=== PATIENT | male | born 1985 | race Caucasian/White ===

== ENCOUNTER 2022-03-08 12:15 | Emergency (ER) | payer BC, OTHER ==
[2022-03-08 12:27] VITALS: BP 130/88; PULSE 97; RESP 18; TEMP 97.8
[2022-03-08] MEDS ORDERED: SODIUM CHLORIDE 0.9% 2,000 ML IV STA (12:42)
[2022-03-08] MEDS ORDERED: LORazepam 2 MG/ML INJ IV STA (12:42)
[2022-03-08] MEDS ORDERED: PANTOPRAZOLE 40 MG/10 ML VIAL IVP STA (12:42)
[2022-03-08] MEDS ORDERED: ONDANSETRON 4 MG/2 ML VIAL IVP STA (12:42)
--- NOTE | 2022-03-08 12:44 | ED ---
Abdominal Pain HPI - General Chief Complaint: Abdominal Pain Stated Complaint: abd pain Time Seen by Provider: 03/08/22 12:28 Source: patient, RN notes reviewed Mode of arrival: ambulatory Limitations: no limitations - History of Present Illness Initial Comments: This a 36-year-old male presents emergency Department chief complaint abdominal pain, alcohol withdrawal. Patient states that a recent CT started drinking heavily again he states he was sober prior to this for one year. Patient states she's drinking at least half a pint the morning and night states he has take multiple shots to keep from withdrawing. Patient states that he did have recent CAT scan lab work at [facility] showed evidence of gastritis, colitis. Patient states she was placed on ciprofloxacin and Flagyl and which he states he became very ill from. - Related Data Home Medications Medication Instructions Recorded Confirmed Atorvastatin [Lipitor] 10 mg PO DAILY 03/08/22 03/08/22 Dicyclomine [Bentyl] 20 mg PO QID PRN 03/08/22 03/08/22 Fenofibrate Nanocrystallized 48 mg PO DAILY 03/08/22 03/08/22 [Fenofibrate] LORazepam [Ativan] 0.5 mg PO Q8H 03/08/22 03/08/22 Metoclopramide [Reglan] 10 mg PO QID 03/08/22 03/08/22 Ondansetron [Zofran] 4 mg PO TID 03/08/22 03/08/22 metroNIDAZOLE [Flagyl] 500 mg PO BID 03/08/22 03/08/22 Allergies Allergy/AdvReac Type Severity Reaction Status Date / Time No Known Allergies Allergy Verified 03/08/22 13:34 Review of Systems ROS Statement: Those systems with pertinent positive or pertinent negative responses have been documented in the HPI. ROS Other: All systems not noted in ROS Statement are negative. Past Medical History Past Medical History: Hyperlipidemia, Seizure Disorder History of Any Multi-Drug Resistant Organisms: None Reported Past Surgical History: No Surgical Hx Reported Past Psychological History: Anxiety Smoking Status: Current every day smoker Past Alcohol Use History: Heavy Past Drug Use History: None Reported General Exam Limitations: no limitations General appearance: alert, in no apparent distress Head exam: Present: atraumatic, normocephalic, normal inspection Eye exam: Present: normal appearance, PERRL, EOMI. Absent: scleral icterus, conjunctival injection, periorbital swelling ENT exam: Present: normal exam, normal oropharynx, mucous membranes moist Neck exam: Present: normal inspection, full ROM. Absent: tenderness, meningismus, lymphadenopathy Respiratory exam: Present: normal lung sounds bilaterally. Absent: respiratory distress, wheezes, rales, rhonchi, stridor Cardiovascular Exam: Present: regular rate, normal rhythm, normal heart sounds. Absent: systolic murmur, diastolic murmur, rubs, gallop, clicks GI/Abdominal exam: Present: soft, normal bowel sounds. Absent: distended, tenderness, guarding, rebound, rigid Neurological exam: Present: alert Skin exam: Present: warm, dry, intact, normal color. Absent: rash Course Vital Signs 03/08/22 12:24 Temperature 97.8 F Pulse Rate 97 Respiratory 18 Rate Blood Pressure 130/88 O2 Sat by Pulse 96 Oximetry Medical Decision Making - Medical Decision Making 36-year-old presented from for alcohol abuse, abdominal issues. Patient did have initial labs drawn, given fluids, antiemetics patient demanded he be discharged. Patient was discharged to his mother's care who accepts responsibility of the patient. Patient is acutely intoxicated. - Lab Data Result diagrams: 03/08/22 12:56 03/08/22 12:56 Lab Results 03/08/22 03/08/22 03/08/22 Range/Units 12:56 12:56 12:56 WBC 5.6 (3.8-10.6) k/uL RBC 4.88 (4.30-5.90) m/uL Hgb 15.8 (13.0-17.5) gm/dL Hct 44.4 (39.0-53.0) % MCV 90.9 (80.0-100.0) fL MCH 32.4 (25.0-35.0) pg MCHC 35.6 (31.0-37.0) g/dL RDW 12.5 (11.5-15.5) % Plt Count 176 (150-450) k/uL MPV 8.5 Neutrophils % 51 % Lymphocytes % 34 % Monocytes % 8 % Eosinophils % 2 % Basophils % 1 % Neutrophils # 2.8 (1.3-7.7) k/uL Lymphocytes # 1.9 (1.0-4.8) k/uL Monocytes # 0.4 (0-1.0) k/uL Eosinophils # 0.1 (0-0.7) k/uL Basophils # 0.1 (0-0.2) k/uL Sodium 133 L (137-145) mmol/L Potassium 4.0 (3.5-5.1) mmol/L Chloride 103 (98-107) mmol/L Plasma Lactic Acid Federico (0.7-2.0) mmol/L Urine Color Yellow Urine Appearance Cloudy (Clear) Urine pH 7.0 (5.0-8.0) Ur Specific [place] 1.008 (1.001-1.035) Urine Protein Negative (Negative) Urine Glucose (UA) Negative (Negative) Urine Ketones Negative (Negative) Urine Blood Negative (Negative) Urine Nitrite Negative (Negative) Urine Bilirubin Negative (Negative) Urine Urobilinogen <2.0 (<2.0) mg/dL Ur Leukocyte Esterase Negative (Negative) Urine WBC 1 (0-5) /hpf Amorphous Sediment Occasional H (None) /hpf Serum Alcohol 246 H* mg/dL 03/08/22 Range/Units 12:56 WBC (3.8-10.6) k/uL RBC (4.30-5.90) m/uL Hgb (13.0-17.5) gm/dL Hct (39.0-53.0) % MCV (80.0-100.0) fL MCH (25.0-35.0) pg MCHC (31.0-37.0) g/dL RDW (11.5-15.5) % Plt Count (150-450) k/uL MPV Neutrophils % % Lymphocytes % % Monocytes % % Eosinophils % % Basophils % % Neutrophils # (1.3-7.7) k/uL Lymphocytes # (1.0-4.8) k/uL Monocytes # (0-1.0) k/uL Eosinophils # (0-0.7) k/uL Basophils # (0-0.2) k/uL Sodium (137-145) mmol/L Potassium (3.5-5.1) mmol/L Chloride (98-107) mmol/L Plasma Lactic Acid Federico 1.5 (0.7-2.0) mmol/L Urine Color Urine Appearance (Clear) Urine pH (5.0-8.0) Ur Specific [place] (1.001-1.035) Urine Protein (Negative) Urine Glucose (UA) (Negative) Urine Ketones (Negative) Urine Blood (Negative) Urine Nitrite (Negative) Urine Bilirubin (Negative) Urine Urobilinogen (<2.0) mg/dL Ur Leukocyte Esterase (Negative) Urine WBC (0-5) /hpf Amorphous Sediment (None) /hpf Serum Alcohol mg/dL Disposition Clinical Impression: Alcohol abuse, Alcohol intoxication Disposition: Left Against Medical Advice Referrals: Mark Anthony Jason MD [Primary Care Provider] - 1-2 days Time of Disposition: 14:00
[2022-03-08 13:13] LABS: Basophils # (A) 0.1 k/uL (0-0.2); Basophils % (A) 1 %; Eosinophils # (A) 0.1 k/uL (0-0.7); Eosinophils % (A) 2 %; HCT 44.4 % (39.0-53.0); HGB 15.8 gm/dL (13.0-17.5); Lymphocytes # (A) 1.9 k/uL (1.0-4.8); Lymphocytes % (A) 34 %; MCH 32.4 pg (25.0-35.0); MCHC 35.6 g/dL (31.0-37.0); MCV 90.9 fL (80.0-100.0); Mean Platelet Volume 8.5; Monocytes # (A) 0.4 k/uL (0-1.0); Monocytes % (A) 8 %; Neutrophils # (A) 2.8 k/uL (1.3-7.7); Neutrophils % (A) 51 %; Platelet Count 176 k/uL (150-450); RBC 4.88 m/uL (4.30-5.90); RDW 12.5 % (11.5-15.5); WBC 5.6 k/uL (3.8-10.6)
[2022-03-08] MEDS ORDERED: NICOTINE 21MG/24HR PATCH TRANSDERM STA (13:21)
[2022-03-08 13:22] LABS: Amorphous Sediment,Urine Occasional /hpf; Appearance,Urine Cloudy (Clear); Bilirubin,Urine Negative (Negative); Blood,Urine Negative (Negative); Color,Urine Yellow; Glucose,Urine (UA) Negative (Negative); Ketones,Urine Negative (Negative); Leukocyte Esterase,Urine Negative (Negative); Nitrite,Urine Negative (Negative); Protein,Urine Negative (Negative); Specific Gravity,Urine 1.008 (1.001-1.035); Urobilinogen,Urine <2.0 mg/dL (<2.0); WBC,Urine 1 /hpf (0-5)
[2022-03-08 14:02] LABS: Chloride 103 mmol/L (98-107); Sodium 133 mmol/L (137-145)
[2022-03-08 14:05] LABS: Alcohol 246 mg/dL
[2022-03-08 14:52] LABS: African American GFR (CKD) >90 (>60 ml/min/1.73 sqM); Anion Gap 8 mmol/L; Non-African American GFR(CKD) 81 (>60 ml/min/1.73 sqM)
[2022-03-08 15:06] LABS: Blood Urea Nitrogen 19 mg/dL (9-20); Calcium 8.3 mg/dL (8.4-10.2); Carbon Dioxide 22 mmol/L (22-30); Glucose 114 mg/dL (74-99); Magnesium 2.1 mg/dL (1.6-2.3); Total Protein 5.9 g/dL (6.3-8.2)
[2022-03-08 15:07] LABS: Albumin 3.3 g/dL (3.5-5.0); Alkaline Phosphatase 122 U/L (38-126); Amylase 57 U/L (30-110); Total Bilirubin 1.8 mg/dL (0.2-1.3)
[2022-03-08 15:20] LABS: AST 831 U/L (17-59)
[2022-03-08 15:21] LABS: ALT 1032 U/L (4-49)
== END 2022-03-08 14:06 | disposition left against medical advice (07) ==
LOC: EC 12:15
DX: R10.9 Unspecified abdominal pain (principal); F17.200 Nicotine dependence, unspecified, uncomplicated
CPT/HCPCS: 36415; 80053; 82150; 83605; 83735; 85025; 81001; 80320; 99284; 96374; 96375; S4990; J2060; J2405; C9113

== ENCOUNTER 2024-02-18 13:17 | Emergency (ER) | payer BC ==
[2024-02-18 13:52] VITALS: TEMP 97.8
--- NOTE | 2024-02-18 14:04 | ED ---
General Adult HPI - General Chief complaint: Alcohol Stated complaint: Withdrawal from alcohol Time Seen by Provider: 02/18/24 13:45 Source: patient, family, RN notes reviewed Mode of arrival: ambulatory Limitations: no limitations - History of Present Illness Initial comments: Patient is a 38-year-old male present to the emergency department for alcohol withdrawal. Patient states he last drink yesterday. Patient states he has been on a marin and has drank frequently over the past 4 days. Patient feels a little bit shaky. Patient is worried he is going through withdrawal. No abdominal pain. No nausea or vomiting. No suicidal or homicidal thoughts - Related Data Home Medications Medication Instructions Recorded Confirmed Atorvastatin [Lipitor] 10 mg PO DAILY 03/08/22 02/18/24 Ondansetron [Zofran] 4 mg PO Q8H PRN 03/08/22 02/18/24 LORazepam [Ativan] 1 mg PO BID PRN 02/18/24 02/18/24 Liver Supplement Otc 1 tab PO DAILY 02/18/24 02/18/24 Loratadine 10 mg PO DAILY 02/18/24 02/18/24 QUEtiapine [SEROquel] 25 mg PO HS 02/18/24 02/18/24 busPIRone HCL 22.5 mg PO BID 02/18/24 02/18/24 Allergies Allergy/AdvReac Type Severity Reaction Status Date / Time No Known Allergies Allergy Verified 02/18/24 18:32 Review of Systems ROS Statement: Those systems with pertinent positive or pertinent negative responses have been documented in the HPI. ROS Other: All systems not noted in ROS Statement are negative. Constitutional: Denies: fever Eyes: Denies: eye pain ENT: Denies: ear pain Respiratory: Denies: cough Cardiovascular: Denies: chest pain Endocrine: Denies: fatigue Gastrointestinal: Denies: abdominal pain, nausea, vomiting Past Medical History Past Medical History: Asthma, Hyperlipidemia, Seizure Disorder History of Any Multi-Drug Resistant Organisms: None Reported Past Surgical History: No Surgical Hx Reported Past Psychological History: Anxiety Smoking Status: Smoker, current status unknown Past Alcohol Use History: Abuse, Daily, Heavy Past Drug Use History: Methamphetamine General Exam Limitations: no limitations General appearance: alert, in no apparent distress Head exam: Present: normocephalic Eye exam: Present: normal appearance Neck exam: Present: normal inspection Respiratory exam: Present: normal lung sounds bilaterally Cardiovascular Exam: Present: tachycardia GI/Abdominal exam: Present: soft. Absent: tenderness Extremities exam: Present: normal inspection Neurological exam: Present: alert Psychiatric exam: Present: normal affect, normal mood Skin exam: Present: normal color Course Vital Signs 02/18/24 13:21 Temperature 97.8 F Pulse Rate 115 H Respiratory 16 Rate Blood Pressure 144/93 O2 Sat by Pulse 96 Oximetry Medical Decision Making - Medical Decision Making Was pt. sent in by a medical professional or institution (, JOSE, RESPIRATORY TECHNICIAN, urgent care, hospital, or fci...) When possible be specific @ -No Did you speak to anyone other than the patient for history (EMS, parent, family, police, friend...)? What history was obtained from this source @ -No Did you review nursing and triage notes (agree or disagree)? Why? @ -I reviewed and agree with nursing and triage notes Were old charts reviewed (outside hosp., previous admission, EMS record, old EKG, old radiological studies, urgent care reports/EKG's, fci records)? Report findings @ -No old charts were reviewed Differential Diagnosis (chest pain, altered mental status, abdominal pain women, abdominal pain men, vaginal bleeding, weakness, fever, dyspnea, syncope, headac he, dizziness, GI bleed, back pain, seizure, CVA, palpatations, mental health, musculoskeletal)? @ -Differential Mental Health Depression, anxiety, bipolar, psychosis, schizophrenia, borderline personality, situational depression, adjustment disorder, behavioral disorder, brain tumor, malingering, substance abuse, encephalopathy, medication reaction, dementia, hypothyroidism, degenerative neurologic disorder, lupus.... This is not meant to be all-inclusive list EKG interpreted by me (3pts min.). @ -As above X-rays interpreted by me (1pt min.). @ -None done CT interpreted by me (1pt min.). @ -None done U/S interpreted by me (1pt. min.). @ -None done What testing was considered but not performed or refused? (CT, X-rays, U/S, labs)? Why? @ -None What meds were considered but not given or refused? Why? @ -None Did you discuss the management of the patient with other professionals (pr ofessionals i.e. Dr., PA, RESPIRATORY TECHNICIAN, lab, RT, psych nurse, aids social worker, needle molder, teacher, tourist information officer, family preservation caseworker)? Give summary @ -Case discussed with mental health nurse who did evaluate patient and plans are for discharge. Patient denies any suicidal thoughts. Was smoking cessation discussed for >3mins.? @ -No Was critical care preformed (if so, how long)? @ -No Were there social determinants of health that impacted care today? How? (Homelessness, low income, unemployed, alcoholism, drug addiction, transportation, low edu. Level, literacy, decrease access to med. care, residential, rehab)? @ -No Was there de-escalation of care discussed even if they declined (Discuss DNR or withdrawal of care, Hospice)? DNR status @ -No What co-morbidities impacted this encounter? (DM, HTN, Smoking, COPD, CAD, Cancer, CVA, ARF, Chemo, Hep., AIDS, mental health diagnosis, sleep apnea, morbid obesity)? @ -None Was patient admitted / discharged? Hospital course, mention meds given and route, prescriptions, significant lab abnormalities, going to OR and other pertinent info. @ -Patient presents with alcohol problems. Family had concerns and patient was seen by mental health services with plans for discharge. Patient will be discharged and recommended follow-up with substance abuse and primary care physician Undiagnosed new problem with uncertain prognosis? @ -No Drug Therapy requiring intensive monitoring for toxicity (Heparin, Nitro, Insulin, Cardizem)? @ -No Were any procedures done? @ -No Diagnosis/symptom? @ -Alcohol abuse Acute, or Chronic, or Acute on Chronic? @ -Acute on chronic Uncomplicated (without systemic symptoms) or Complicated (systemic symptoms)? @ -Default Side effects of treatment? @ -No Exacerbation, Progression, or Severe Exacerbation? @ -No Poses a threat to life or bodily function? How? (Chest pain, USA, VT, pneumonia, PE, COPD, DKA, ARF, appy, cholecystitis, CVA, Diverticulitis, Homicidal, Suicidal, threat to staff... and all critical care pts) @ -No - Lab Data Result diagrams: 02/18/24 14:43 02/18/24 14:43 Lab Results 02/18/24 02/18/24 Range/Units 14:43 14:43 WBC 8.4 (3.8-10.6) k/uL RBC 5.51 (4.30-5.90) m/uL Hgb 18.4 H (13.0-17.5) gm/dL Hct 50.5 (39.0-53.0) % MCV 91.6 (80.0-100.0) fL MCH 33.4 (25.0-35.0) pg MCHC 36.5 (31.0-37.0) g/dL RDW 13.1 (11.5-15.5) % Plt Count 311 (150-450) k/uL MPV 7.8 Neutrophils % 57 % Lymphocytes % 34 % Monocytes % 6 % Eosinophils % 1 % Basophils % 1 % Neutrophils # 4.8 (1.3-7.7) k/uL Lymphocytes # 2.8 (1.0-4.8) k/uL Monocytes # 0.5 (0-1.0) k/uL Eosinophils # 0.0 (0-0.7) k/uL Basophils # 0.1 (0-0.2) k/uL Hyperchromasia Slight Sodium 143 (137-145) mmol/L Potassium 3.9 (3.5-5.1) mmol/L Chloride 106 (98-107) mmol/L Carbon Dioxide 22 (22-30) mmol/L Anion Gap 15 mmol/L BUN 11 (9-20) mg/dL Creatinine 0.83 (0.66-1.25) mg/dL Est GFR (CKD-EPI)AfAm >90 (>60 ml/min/1.73 sqM) Est GFR (CKD-EPI)NonAf >90 (>60 ml/min/1.73 sqM) Glucose 129 H (74-99) mg/dL Calcium 9.3 (8.4-10.2) mg/dL Magnesium 1.8 (1.6-2.3) mg/dL Total Bilirubin 1.3 (0.2-1.3) mg/dL AST 37 (17-59) U/L ALT 46 (4-49) U/L Alkaline Phosphatase 53 (38-126) U/L Total Protein 7.6 (6.3-8.2) g/dL Albumin 4.8 (3.5-5.0) g/dL Disposition Clinical Impression: Alcohol intoxication, Alcohol abuse Disposition: HOME SELF-CARE Condition: Stable Instructions (If sedation given, give patient instructions): Alcohol Withdrawal (ED), Alcohol Intoxication (ED), Help Prevent Suicide (ED), Depression (ED) Additional Instructions: Discontinue alcohol use. Please follow-up with your primary care physician in the next day or 2 for recheck. Please do follow-up with rehab again. Consider [facility] or similar. Return for confusion, uncontrolled vomiting, worsening symptoms or other concerns. Is patient prescribed a controlled substance at d/c from ED?: No Referrals: Julia Rich, JEREMIAS [REFERRING] - 1-2 days Forms: AA Meetings CORNELIUS Jo Meetings [address] - [facility], In Substance Abuse Facilities Time of Disposition: 19:07
[2024-02-18 15:11] LABS: ALT 46 U/L (4-49); AST 37 U/L (17-59); African American GFR (CKD) >90 (>60 ml/min/1.73 sqM); Albumin 4.8 g/dL (3.5-5.0); Alkaline Phosphatase 53 U/L (38-126); Anion Gap 15 mmol/L; Blood Urea Nitrogen 11 mg/dL (9-20); Calcium 9.3 mg/dL (8.4-10.2); Carbon Dioxide 22 mmol/L (22-30); Chloride 106 mmol/L (98-107); Glucose 129 mg/dL (74-99); Magnesium 1.8 mg/dL (1.6-2.3); Non-African American GFR(CKD) >90 (>60 ml/min/1.73 sqM); Potassium 3.9 mmol/L (3.5-5.1); Sodium 143 mmol/L (137-145); Total Bilirubin 1.3 mg/dL (0.2-1.3); Total Protein 7.6 g/dL (6.3-8.2)
[2024-02-18] MEDS: NICOTINE 21MG/24HR PATCH TRANSDERM STA (15:15)
[2024-02-18] MEDS: LORazepam 2 MG/ML INJ IV STA ×2 (15:15→18:25)
[2024-02-18] MEDS: SODIUM CHLORIDE 0.9% 1,000 ML IV STA (15:15)
[2024-02-18] MEDS: THIAMINE 100 MG/ML 2 ML VIAL IM STA (15:16)
[2024-02-18 15:30] LABS: Basophils # (A) 0.1 k/uL (0-0.2); Basophils % (A) 1 %; Eosinophils % (A) 1 %; HCT 50.5 % (39.0-53.0); HGB 18.4 gm/dL (13.0-17.5); Hyperchromasia Slight; Lymphocytes # (A) 2.8 k/uL (1.0-4.8); Lymphocytes % (A) 34 %; MCH 33.4 pg (25.0-35.0); MCHC 36.5 g/dL (31.0-37.0); MCV 91.6 fL (80.0-100.0); Mean Platelet Volume 7.8; Monocytes # (A) 0.5 k/uL (0-1.0); Monocytes % (A) 6 %; Neutrophils # (A) 4.8 k/uL (1.3-7.7); Neutrophils % (A) 57 %; Platelet Count 311 k/uL (150-450); RBC 5.51 m/uL (4.30-5.90); RDW 13.1 % (11.5-15.5); WBC 8.4 k/uL (3.8-10.6)
[2024-02-18] MEDS: LOPERAMIDE 2 MG CAP PO STA (18:24)
[2024-02-18] MEDS: LORazepam 1 MG TAB PO STA (19:24)
[2024-02-18] MEDS: ONDANSETRON 4 MG ODT STARTER PACK 2 TAB BTL PO STA (19:24)
[2024-02-18 20:05] VITALS: BP 138/89; PULSE 105; RESP 18
== END 2024-02-18 19:32 | disposition home or self-care (01) ==
LOC: EC 13:17
DX: F10.129 Alcohol abuse with intoxication, unspecified (principal); R00.0 Tachycardia, unspecified; F17.200 Nicotine dependence, unspecified, uncomplicated
CPT/HCPCS: 82075; 36415; 80053; 83735; 85025; 99285; 96374; 96376; 96361 ×4; 96372; S4990; J2060; J3411; S0119

== ENCOUNTER 2024-05-16 09:57 | Inpatient (IN) | payer BC ==
[2024-05-16] MEDS ORDERED: LORazepam 2 MG/ML INJ IV PRN ×2 (10:14)
--- NOTE | 2024-05-16 10:18 | ED ---
Alcohol HPI - General Chief Complaint: Alcohol Stated Complaint: ETOH Time Seen by Provider: 05/16/24 10:16 Source: patient, family, RN notes reviewed Mode of arrival: ambulatory Limitations: no limitations - History of Present Illness Initial Comments: 38-year-old male presented to the ER with a chief complaint of alcohol withdrawal. Patient sent from [facility] for evaluation of alcohol intoxication. Patient reports he is currently trying to enter alcohol rehabilitation at [facility] but his alcohol level was too high for his admittance at this time. Patient states he typically drinks 1 pint per day. His last drink was last night around 11 PM. He denies any history of seizures or delirium tremors with withdrawal. He denies any current headache, cough, congestion, chest pain, shortness of breath, abdominal pain or peripheral edema. - Related Data Home Medications Medication Instructions Recorded Confirmed Atorvastatin [Lipitor] 10 mg PO DAILY 03/08/22 05/16/24 QUEtiapine [SEROquel] 25 mg PO HS 02/18/24 05/16/24 busPIRone HCL 22.5 mg PO BID 02/18/24 05/16/24 Ondansetron Odt [Zofran Odt] 4 mg PO Q12HR PRN 05/16/24 05/16/24 Allergies Allergy/AdvReac Type Severity Reaction Status Date / Time No Known Allergies Allergy Verified 05/16/24 11:38 Review of Systems ROS Statement: Those systems with pertinent positive or pertinent negative responses have been documented in the HPI. ROS Other: All systems not noted in ROS Statement are negative. Past Medical History Past Medical History: Asthma, Hyperlipidemia, Seizure Disorder History of Any Multi-Drug Resistant Organisms: None Reported Past Surgical History: No Surgical Hx Reported Past Psychological History: Anxiety Smoking Status: Vaper Past Alcohol Use History: Abuse, Daily, Heavy Past Drug Use History: Methamphetamine General Exam Limitations: no limitations General appearance: alert, in no apparent distress, appears intoxicated Respiratory exam: Present: normal lung sounds bilaterally. Absent: respiratory distress, wheezes, rales, rhonchi, stridor Cardiovascular Exam: Present: normal rhythm, tachycardia, normal heart sounds GI/Abdominal exam: Present: soft, normal bowel sounds. Absent: distended, tenderness, guarding, rebound, rigid Extremities exam: Present: normal inspection, full ROM, normal capillary refill. Absent: tenderness, pedal edema, joint swelling, calf tenderness Skin exam: Present: warm, dry, intact, normal color. Absent: rash Course Vital Signs 05/16/24 05/16/24 09:59 11:25 Temperature 97.7 F Pulse Rate 125 H 109 H Respiratory 18 16 Rate Blood Pressure 118/82 118/62 O2 Sat by Pulse 96 96 Oximetry - Reevaluation(s) Reevaluation #1: 05/16/24 12:07 Case discussed with [facility], Dr. Ngo, accepted medial admission. Medical Decision Making - Medical Decision Making Was pt. sent in by a medical professional or institution (, JOSE, WHEEL AND CASTER REPAIRER, urgent care, hospital, or usp...) When possible be specific @ -Patient sent here from [facility] for evaluation of alcohol intoxication. Did you speak to anyone other than the patient for history (EMS, parent, family, police, friend...)? What history was obtained from this source @ -Mother aiding in HPI and PMHX as patient is intoxicated. Did you review nursing and triage notes (agree or disagree)? Why? @ -I reviewed and agree with nursing and triage notes Were old charts reviewed (outside hosp., previous admission, EMS record, old EKG, old radiological studies, urgent care reports/EKG's, usp records)? Report findings @ -No old charts were reviewed Differential Diagnosis (chest pain, altered mental status, abdominal pain women, abdominal pain men, vaginal bleeding, weakness, fever, dyspnea, syncope, headache, dizziness, GI bleed, back pain, seizure, CVA, palpatations, mental health, musculoskeletal)? @ -Alcohol intoxication, alcohol withdrawal, electrolyte abnormality This list is not meant to be all-inclusive EKG interpreted by me (3pts min.). @ -None X-rays interpreted by me (1pt min.). @ -None done CT interpreted by me (1pt min.). @ -None done U/S interpreted by me (1pt. min.). @ -None done What testing was considered but not performed or refused? (CT, X-rays, U/S, labs)? Why? @ -None What meds were considered but not given or refused? Why? @ -None Did you discuss the management of the patient with other professionals (professionals i.e. , JOSE, WHEEL AND CASTER REPAIRER, lab, RT, psych nurse, psychiatric social worker, computer scientist, teacher, sales and service officer, corrections caseworker)? Give summary @ -Yes, case discussed with [facility], Dr. Ngo, who accepts medical admission. Was smoking cessation discussed for >3mins.? @ -No Was critical care preformed (if so, how long)? @ -No Were there social determinants of health that impacted care today? How? (Homelessness, low income, unemployed, alcoholism, drug addiction, transportation, low edu. Level, literacy, decrease access to med. care, usp, rehab)? @ -Patient has alcoholism and is currently trying to enter [facility] for rehabilitation. Patient sent here by [facility] for alcohol intoxication. Was there de-escalation of care discussed even if they declined (Discuss DNR or withdrawal of care, Hospice)? DNR status @ -No What co-morbidities impacted this encounter? (DM, HTN, Smoking, COPD, CAD, Cancer, CVA, ARF, Chemo, Hep., AIDS, mental health diagnosis, sleep apnea, morbid obesity)? @ -Alcoholism, anxiety Was patient admitted / discharged? Hospital course, mention meds given and route, prescriptions, significant lab abnormalities, going to OR and other pertinent info. @ -Admitted. 38-year-old male presented to ER with a chief complaint of alcohol intoxication. Patient presented from [facility] as he is currently trying to enter rehabilitation for alcoholism. He reports he normally drinks 1 pint per day last drink around 11 PM last night. History and physical exam completed. Vitals stable. Patient in no signs of acute distress but is intoxicated on exam. Exam unimpressive. Laboratory studies obtained remarkable for serum alcohol at 340 with associated transaminitis (total bilirubin 2.4, AST 236, ALT 181). Patient started on CIWA and ativan protocol. Patient received 1 L IV fluids in the ER. Admission considered for alcohol intoxication. Case discussed with [facility], Dr. Ngo, who accepts medical admission. Patient agreeable for admission. Case discussed with ED attending, Dr. Anderson. Undiagnosed new problem with uncertain prognosis? @ -No Drug Therapy requiring intensive monitoring for toxicity (Heparin, Nitro, Insulin, Cardizem)? @ -No Were any procedures done? @ -No Diagnosis/symptom? @ -Alcohol intoxication/transaminitis Acute, or Chronic, or Acute on Chronic? @ -Acute Uncomplicated (without systemic symptoms) or Complicated (systemic symptoms)? @ -Complicated Side effects of treatment? @ -No Exacerbation, Progression, or Severe Exacerbation? @ -No Poses a threat to life or bodily function? How? (Chest pain, USA, OR, pneumonia, PE, COPD, DKA, ARF, appy, cholecystitis, CVA, Diverticulitis, Homicidal, Suicidal, threat to staff... and all critical care pts) @ -Possibly alcohol withdrawal can lead to seizures. - Lab Data Result diagrams: 05/16/24 10:39 05/16/24 10:39 Lab Results 05/16/24 05/16/24 Range/Units 10:39 10:39 WBC 5.5 (3.8-10.6) k/uL RBC 5.82 (4.30-5.90) m/uL Hgb 17.8 H (13.0-17.5) gm/dL Hct 52.4 (39.0-53.0) % MCV 90.1 (80.0-100.0) fL MCH 30.5 (25.0-35.0) pg MCHC 33.9 (31.0-37.0) g/dL RDW 12.9 (11.5-15.5) % Plt Count 228 (150-450) k/uL MPV 7.7 Neutrophils % 56 % Lymphocytes % 31 % Monocytes % 8 % Eosinophils % 1 % Basophils % 1 % Neutrophils # 3.0 (1.3-7.7) k/uL Lymphocytes # 1.7 (1.0-4.8) k/uL Monocytes # 0.4 (0-1.0) k/uL Eosinophils # 0.1 (0-0.7) k/uL Basophils # 0.1 (0-0.2) k/uL Sodium 143 (137-145) mmol/L Potassium 3.8 (3.5-5.1) mmol/L Chloride 109 H (98-107) mmol/L Carbon Dioxide 22 (22-30) mmol/L Anion Gap 12 mmol/L BUN 14 (9-20) mg/dL Creatinine 0.89 (0.66-1.25) mg/dL Est GFR (CKD-EPI)AfAm >90 (>60 ml/min/1.73 sqM) Est GFR (CKD-EPI)NonAf >90 (>60 ml/min/1.73 sqM) Glucose 107 H (74-99) mg/dL Calcium 8.5 (8.4-10.2) mg/dL Magnesium 2.0 (1.6-2.3) mg/dL Total Bilirubin 2.4 H (0.2-1.3) mg/dL AST 236 H (17-59) U/L ALT 181 H (4-49) U/L Alkaline Phosphatase 50 (38-126) U/L Total Protein 6.7 (6.3-8.2) g/dL Albumin 4.3 (3.5-5.0) g/dL Serum Alcohol 340 H* mg/dL Disposition Clinical Impression: Alcohol intoxication, Transaminitis Disposition: ADMITTED IP TO THIS HOSP Condition: Stable Referrals: Mark Anthony Jason MD [Primary Care Provider] - 1-2 days Time of Disposition: 12:07
[2024-05-16] MEDS: SODIUM CHLORIDE 0.9% 1,000 ML IV STA (10:33)
[2024-05-16] MEDS: THIAMINE 100 MG/ML 2 ML VIAL IM STA (10:34)
[2024-05-16 10:58] LABS: ALT 181 U/L (4-49); AST 236 U/L (17-59); African American GFR (CKD) >90 (>60 ml/min/1.73 sqM); Albumin 4.3 g/dL (3.5-5.0); Alkaline Phosphatase 50 U/L (38-126); Anion Gap 12 mmol/L; Blood Urea Nitrogen 14 mg/dL (9-20); Calcium 8.5 mg/dL (8.4-10.2); Carbon Dioxide 22 mmol/L (22-30); Chloride 109 mmol/L (98-107); Glucose 107 mg/dL (74-99); Non-African American GFR(CKD) >90 (>60 ml/min/1.73 sqM); Potassium 3.8 mmol/L (3.5-5.1); Sodium 143 mmol/L (137-145); Total Bilirubin 2.4 mg/dL (0.2-1.3); Total Protein 6.7 g/dL (6.3-8.2)
[2024-05-16 11:16] LABS: Alcohol 340 mg/dL; Basophils # (A) 0.1 k/uL (0-0.2); Basophils % (A) 1 %; Eosinophils # (A) 0.1 k/uL (0-0.7); Eosinophils % (A) 1 %; HCT 52.4 % (39.0-53.0); HGB 17.8 gm/dL (13.0-17.5); Lymphocytes # (A) 1.7 k/uL (1.0-4.8); Lymphocytes % (A) 31 %; MCH 30.5 pg (25.0-35.0); MCHC 33.9 g/dL (31.0-37.0); MCV 90.1 fL (80.0-100.0); Mean Platelet Volume 7.7; Monocytes # (A) 0.4 k/uL (0-1.0); Monocytes % (A) 8 %; Neutrophils % (A) 56 %; Platelet Count 228 k/uL (150-450); RBC 5.82 m/uL (4.30-5.90); RDW 12.9 % (11.5-15.5); WBC 5.5 k/uL (3.8-10.6)
[2024-05-16] MEDS ORDERED: NALOXONE 0.4 MG/ML 1 ML VIAL IV PRN (12:06)
[2024-05-16] MEDS ORDERED: IBUPROFEN 400 MG TAB PO PRN (12:06)
[2024-05-16] MEDS: SODIUM CHLORIDE 0.9% 1,000 ML IV SCH (12:13)
[2024-05-16] MEDS: HEPARIN SODIUM,PORCINE 5,000 UNIT/ML 1 ML VIAL SQ SCH (15:05)
[2024-05-16] MEDS: ONDANSETRON 4 MG/2 ML VIAL IVP PRN ×2 (16:11→21:29)
[2024-05-16] MEDS: LORazepam 2 MG/ML INJ IV PRN (16:11)
[2024-05-16] MEDS: busPIRone HCl 5 MG TAB PO SCH (21:30)
[2024-05-16] MEDS: QUEtiapine 25 MG TAB PO SCH (21:32)
--- NOTE | 2024-05-17 01:50 | P.HPIM ---
History of Present Illness H&P Date: 05/16/24 Chief Complaint: Acute alcohol intoxication Patient is a 38-year-old male with a past medical history of severe alcohol abuse, drinks 1 pint a day, asthma, hyperlipidemia, prior history of seizures and Alvarez, anxiety and history of methamphetamine use. Patient presents to ER due to complaints of alcohol withdrawals. Patient was sent from [place] due to acute alcohol intoxication. Patient is currently trying to enter alcohol rehabilitation at [facility] but his level was too high for him to admit to the facility. Last drink was about 11 PM. Currently patient is intoxicated and confused. Denies any chest pain or shortness of breath. Denies any cough or sputum production. No hematemesis or melena. No complaints of abdominal pain. Laboratory data showed WBC 5.4 hemoglobin 17.8 and platelets 228 sodium 143 potassium 3.8 chloride 109 bicarb is 22 BUN 14 and creatinine 0.89 blood sugar 107, total bili 2.4 AST 258 ALT 181 and alk phos 50 and albumin 4.3 Serum alcohol level is 340 Review of Systems ROS unobtainable: due to mental status Past Medical History Past Medical History: Asthma, Hyperlipidemia, Seizure Disorder History of Any Multi-Drug Resistant Organisms: None Reported Past Surgical History: No Surgical Hx Reported Past Psychological History: Anxiety Smoking Status: Vaper Past Alcohol Use History: Abuse, Daily, Heavy Past Drug Use History: Methamphetamine Medications and Allergies Home Medications Medication Instructions Recorded Confirmed Type Atorvastatin [Lipitor] 10 mg PO DAILY 03/08/22 05/16/24 History QUEtiapine [SEROquel] 25 mg PO HS 02/18/24 05/16/24 History busPIRone HCL 22.5 mg PO BID 02/18/24 05/16/24 History Ondansetron Odt [Zofran Odt] 4 mg PO Q12HR PRN 05/16/24 05/16/24 History Allergies Allergy/AdvReac Type Severity Reaction Status Date / Time No Known Allergies Allergy Verified 05/16/24 11:38 Physical Exam Vitals: Vital Signs Temp Pulse Resp BP Pulse Ox 05/16/24 11:25 109 H 16 118/62 96 05/16/24 09:59 97.7 F 125 H 18 118/82 96 Intake and Output 05/15/24 05/16/24 05/16/24 22:59 06:59 14:59 Other: Weight 108.862 kg PHYSICAL EXAMINATION: Patient is lying in the bed mild distress, awake alert but disoriented and confused and intoxicated.. HEENT: Normocephalic. Neck is supple. Pupils reactive. Nostrils clear. Oral cavity is moist. Neck reveals no JVD, carotid bruits, or thyromegaly. CHEST EXAMINATION: Trachea is central. Symmetrical expansion. Lung fontaine clear to auscultation and percussion. CARDIAC: Normal S1, S2 with no gallops. No murmurs ABDOMEN: Soft. Bowel sounds normal. No organomegaly. No abdominal bruits. Extremities: reveal no edema. No clubbing or cyanosis Neurologically awake, alert, disoriented, confused.. No gross focal deficits noted Skin: No rash or skin lesions. Psychiatric: Coperative. Could not be assessed completely Musculoskeletal: No joint swelling or deformity. Normal range of motion. Results CBC & Chem 7: 05/17/24 05:14 05/17/24 05:14 Labs: Abnormal Lab Results - Last 24 Hours (Table) 05/16/24 05/16/24 Range/Units 10:39 10:39 Hgb 17.8 H (13.0-17.5) gm/dL Chloride 109 H (98-107) mmol/L Glucose 107 H (74-99) mg/dL Total Bilirubin 2.4 H (0.2-1.3) mg/dL AST 236 H (17-59) U/L ALT 181 H (4-49) U/L Serum Alcohol 340 H* mg/dL Thrombosis Risk Factor Assmnt - DVT/VTE Prophylaxis DVT/VTE Prophylaxis: Pharmacologic Prophylaxis ordered Assessment and Plan Assessment: Acute alcohol intoxication with level 340 on admission. Patient does drink about a pint daily. Severe alcohol abuse Alcoholic hepatitis with elevated liver enzymes. AST 236 and ALT 181 on admission Prior history of seizure disorder Hyperlipidemia Asthma Anxiety History of vaping and methamphetamine use GI and DVT prophylaxis with heparin subcu and Pepcid Plan: Patient will be continued on IV hydration with normal saline. Continue to monitor for alcohol withdrawal symptoms. Patient will be started on thiamine and multivitamins. Started back on home medications and follow-up closely. Follow-up repeat CBC and CMP. Time with Patient: Greater than 30
[2024-05-17] MEDS: ATORVASTATIN 10 MG TAB PO SCH (08:23)
[2024-05-17] MEDS: THIAMINE 100 MG TAB PO SCH (08:23)
[2024-05-17 08:57] LABS: Basophils # (A) 0.08 X 10*3/uL (0.00-0.10); Eosinophils # (A) 0.12 X 10*3/uL (0.04-0.35); Eosinophils % (A) 1.6 %; HCT 45.5 % (39.6-50.0); HGB 16.6 g/dL (13.0-17.0); Lymphocytes # (A) 0.89 X 10*3/uL (0.90-5.00); Lymphocytes % (A) 11.6 %; MCH 32.1 pg (27.0-32.0); MCHC 36.5 g/dL (32.0-37.0); Mean Platelet Volume 11.6 FL (9.5-12.2); Monocytes # (A) 0.33 X 10*3/uL (0.20-1.00); Monocytes % (A) 4.3 %; NRBC Per 100 WBC 0 X 10*3/uL (0.00-0.01); Neutrophils % (A) 81.2 %; Platelet Count 181 X 10*3/uL (140-440); RBC 5.17 X 10*6/uL (4.40-5.60); RDW 12.4 % (11.5-14.5); WBC 7.64 X 10*3/uL (4.50-10.00)
[2024-05-17 09:17] LABS: ALT 569 U/L (10-49); AST 884 U/L (14-35); Albumin 4.2 g/dL (3.8-4.9); Albumin/Globulin Ratio 2.47 Ratio (1.60-3.17); Alkaline Phosphatase 62 U/L (41-126); BUN/Creat Ratio 12.22 Ratio (12.00-20.00); Calcium 8.2 mg/dL (8.7-10.3); Carbon Dioxide 21.8 mmol/L (21.6-31.8); Chloride 98 mmol/L (96-109); Globulin 1.7 g/dL (1.6-3.3); Glucose 101 mg/dL (70-110); Potassium 4.1 mmol/L (3.5-5.5); Sodium 136 mmol/L (135-145); Total Bilirubin 3.8 mg/dL (0.3-1.2); Total Protein 5.9 g/dL (6.2-8.2)
[2024-05-17 15:09] VITALS: BMI 33.5
--- NOTE | 2024-05-17 15:13 | P.CONS ---
History of Present Illness - Reason for Consult Consult date: 05/17/24 Elevated LFTs Requesting physician: Jamee Villanueva - Chief Complaint Alcohol intoxication - History of Present Illness This is a pleasant 38-year-old male who was sent over from [facility] for alcohol intoxication. Patient had elevated alcohol level and needed to come to the hospital for clearance before being admitted to [facility] for alcohol abuse. Patient was noted to have elevated LFTs on admission with increased today. [facility] was consulted for elevated liver enzymes. Patient states he has been an alcoholic for many years he states most of his life. He states that he drinks a half a pint to 1 pint daily. He denies any previous known history of liver disease. He lives in [place], he does not follow with any previous anchorman. He denies any abdominal pain, nausea or vomiting. Serum alcohol level on admission was 340. Today's labs WBC 7.6 hemoglobin 16.6 platelet count 181,000 sodium 136 potassium 4.1 BUN 11 creatini ne 0.9 total bilirubin 3.8 AST 884 ALT 569 alkaline phosphatase 62 Review of Systems REVIEW OF SYSTEMS: CARDIOPULMONARY: No chest pain or shortness of breath. Gastrointestinal: No abdominal pain. No nausea or vomiting. No hematemesis, coffee-ground emesis. No rectal bleeding, or melena. GENITOURINARY: No dysuria or hematuria. MUSCULOSKELETAL: Reports normal range of motion., Joint pain. SKIN: No rashes. No jaundice. ENDOCRINE: No chills, fevers. No excessive weight gain or loss. No polydipsia or polyuria. PSYCHIATRIC: Alcohol abuse, dependence, intoxication. NEUROLOGY: No change in mental status. Denies dizziness, headache. ENT: Vision unremarkable. CONSTITUTIONAL: No recent weight loss. No fever, chills, night sweats. Past Medical History Past Medical History: Asthma, Hyperlipidemia, Seizure Disorder History of Any Multi-Drug Resistant Organisms: None Reported Past Surgical History: No Surgical Hx Reported Past Psychological History: Anxiety Smoking Status: Vaper Past Alcohol Use History: Abuse, Daily, Heavy Past Drug Use History: Methamphetamine Medications and Allergies Home Medications Medication Instructions Recorded Confirmed Type Atorvastatin [Lipitor] 10 mg PO DAILY 03/08/22 05/16/24 History QUEtiapine [SEROquel] 25 mg PO HS 02/18/24 05/16/24 History busPIRone HCL 22.5 mg PO BID 02/18/24 05/16/24 History Ondansetron Odt [Zofran Odt] 4 mg PO Q12HR PRN 05/16/24 05/16/24 History Allergies Allergy/AdvReac Type Severity Reaction Status Date / Time No Known Allergies Allergy Verified 05/16/24 11:38 Physical Exam Vitals: Vital Signs Temp Pulse Pulse Resp BP BP Pulse Ox 05/17/24 07:00 98 F 105 H 19 121/74 94 L 05/17/24 05:07 107 H 129/88 94 L 05/17/24 02:00 97.5 F L 87 16 115/73 95 05/16/24 18:15 97.9 F 84 20 103/72 05/16/24 17:23 98.4 F 85 18 109/64 95 05/16/24 11:25 109 H 16 118/62 96 Intake and Output 05/16/24 05/17/24 05/17/24 22:59 06:59 14:59 Other: # Voids 2 3 Weight 108.862 kg General appearance: The patient is alert, oriented, appears in no acute distress. HET: Head is normocephalic and atraumatic. Conjunctiva pink. Sclera anicteric. Neck: Supple without lymphadenopathy. Trachea midline. Heart: Regular. Lungs: Equal expansion, normal respiratory effort. Abdomen: Soft, mild right upper abdominal tenderness, nondistended. Skin: No rashes. No jaundice. Extremities: Normal skin color and turgor. No pedal edema. Neurological: No focal deficits. Alert and oriented x3. Results CBC & Chem 7: 05/17/24 05:14 05/17/24 05:14 Labs: Abnormal Lab Results - Last 24 Hours (Table) 05/16/24 05/16/24 05/17/24 Range/Units 10:39 10:39 05:14 Hgb 17.8 H (13.0-17.5) gm/dL MCH 32.1 H (27.0-32.0) pg Lymphocytes # 0.89 L (0.90-5.00) X 10*3/uL Chloride 109 H (98-107) mmol/L Anion Gap (4.00-12.00) mmol/L Glucose 107 H (74-99) mg/dL Calcium (8.7-10.3) mg/dL Total Bilirubin 2.4 H (0.2-1.3) mg/dL AST 236 H (17-59) U/L ALT 181 H (4-49) U/L Total Protein (6.2-8.2) g/dL Serum Alcohol 340 H* mg/dL 05/17/24 Range/Units 05:14 Hgb (13.0-17.5) gm/dL MCH (27.0-32.0) pg Lymphocytes # (0.90-5.00) X 10*3/uL Chloride (98-107) mmol/L Anion Gap 16.20 H (4.00-12.00) mmol/L Glucose (74-99) mg/dL Calcium 8.2 L (8.7-10.3) mg/dL Total Bilirubin 3.8 H (0.2-1.3) mg/dL AST 884 H (17-59) U/L ALT 569 H (4-49) U/L Total Protein 5.9 L (6.2-8.2) g/dL Serum Alcohol mg/dL Assessment and Plan (1) Alcoholic hepatitis Narrative/Plan: 8-year-old male presenting to the hospital with alcohol intoxication with a bl ood alcohol level of 340 with a longstanding history of alcohol abuse over many years. Patient noted to have elevated LFTs on admission with increased elevation today. No prior history of known liver disease denies any history of IV drug use. Elevated LFTs likely secondary to acute alcohol hepatitis. Hepatitis panel ordered and currently pending. Discussed with patient importance of alcohol abstinence, need for alcohol abstinence as patient likely has underlying liver disease possible cirrhosis from alcohol abuse. Will order liver ultrasound. Continue to monitor LFTs. Continue with rehab with [facility] on discharge. Current Visit: No Status: Acute Code(s): K70.10 - ALCOHOLIC HEPATITIS WITHOUT ASCITES SNOMED Code(s): 039528227 (2) Alcohol intoxication Current Visit: Yes Status: Acute Code(s): F10.929 - ALCOHOL USE, UNSPECIFIED WITH INTOXICATION, UNSPECIFIED SNOMED Code(s): 79311839 (3) Transaminitis Current Visit: Yes Status: Acute Code(s): R74.01 - ELEVATION OF LEVELS OF LIVER TRANSAMINASE LEVELS SNOMED Code(s): 602029406 Plan: 1. Continue symptomatic and supportive care 2. CMP, INR 3. Liver ultrasound ordered 4. Diet as tolerated 5. Recommend alcohol abstinence. Discussed with patient and his mother at the bedside importance of alcohol abstinence and progression of liver disease and possible cirrhosis of the liver. Patient verbalized understanding. Thank you for this consultation, we will continue to follow. Dr. Ezequiel Brandt I agree with the dictator's note, documented as a scribe by Sarah Tesfaye.
[2024-05-17 16:00] LABS: Hepatitis A Antibody IgM Nonreactive (Nonreactive); Hepatitis B Core IgM Nonreactive (Nonreactive); Hepatitis B Surface Antigen Nonreactive (Nonreactive); Hepatitis C IgG Antibody Nonreactive (Nonreactive)
[2024-05-17] MEDS: NICOTINE 21MG/24HR PATCH TRANSDERM SCH (16:14)
[2024-05-17] MEDS ORDERED: LORazepam 1 MG TAB PO PRN (16:41)
--- NOTE | 2024-05-17 22:09 | US ---
EXAMINATION TYPE: US liver DATE OF EXAM: 05/17/2024 COMPARISON: NONE CLINICAL INDICATION: Male, 38 years old with history of elevated liver enzymes; Elevated liver enzyme s. TECHNIQUE: Multiple sonographic images of the right upper quadrant are obtained. FINDINGS: EXAM MEASUREMENTS: Liver Length: 20.5 cm Gallbladder Wall: 0.29 cm CBD: 0.5 cm Right Kidney: 11.4 x 5.5 x 5.1 cm PROCESSING TECHNICIAN NOTES: Exam is limited due to gas. Pancreas: Not well seen. Liver: *Enlarged. Very coarse in echotexture with increased attenuation. Gallbladder: *Internal echoes seen within the gallbladder versus artifact measuring 4.6 x 1.9 x 2.6 cm. Evidence for sonographic Carrasco's sign: No CBD: Appears wnl Right Kidney: No hydronephrosis or masses seen IMPRESSION: 1. There may be some minimal sludge within the gallbladder. Gallstones are identified. No gallbladder wall thickening is evident. 2. Hepatomegaly. Mild fatty infiltration liver is present.
[2024-05-18] MEDS: LORazepam 1 MG TAB PO PRN (00:50)
--- NOTE | 2024-05-18 05:49 | P.PN ---
Subjective Progress Note Date: 05/17/24 Patient is a 38-year-old male with a past medical history of severe alcohol abuse, drinks 1 pint a day, asthma, hyperlipidemia, prior history of seizures and Alvarez, anxiety and history of methamphetamine use. Patient presents to ER due to complaints of alcohol withdrawals. Patient was sent from [facility] due to acute alcohol intoxication. Patient is currently trying to enter alcohol rehabilitation at [facility] but his level was too high for him to admit to the facility. Last drink was about 11 PM. Currently patient is intoxicated and confused. Denies any chest pain or shortness of breath. Denies any cough or sputum production. No hematemesis or melena. No complaints of abdominal pain. Laboratory data showed WBC 5.4 hemoglobin 17.8 and platelets 228 sodium 143 potassium 3.8 chloride 109 bicarb is 22 BUN 14 and creatinine 0.89 blood sugar 107, total bili 2.4 AST 258 ALT 181 and alk phos 50 and albumin 4.3 Serum alcohol level is 340 05/17/2024 Patient is seen and evaluated in follow-up continues on [facility] protocol for EtOH withdrawal and repeat labs reveal an elevated AST/ALT with total bilirubin tripled from yesterday. Will obtain hepatitis panel and also consult GI and ap preciate input and recommendations. Patient to continue on IV hydration along with supportive care for withdrawals. Patient reports not eating much and continues with nausea. Patient has been instructed to increase activity as tolerated. Patient plans on returning to [facility] once discharged for continued inpatient alcohol rehab. Mother at the bedside questions and concerns were answered to the best of my ability. Patient is currently afebrile with no reports of chest pain and shortness of breath. Patient is reporting nausea with no vomiting. Review of systems: Constitutional: No reports of fatigue, fever, or chills Cardiovascular: No reports of chest pain or palpitations Respiratory: No reports of shortness of breath or cough GI: reports of nausea, no vomiting, or diarrhea : No reports of dysuria or retention Neurovascular: No reports of weakness or numbness All medications have been reviewed Physical exam: Gen: This is a 38-year-old male who is awake, alert and oriented x 3, well- developed, well-nourished, obese HEENT: Head is atraumatic, normocephalic. Pupils equal, round. Sclerae is anicteric. NECK: Supple. No JVD. No lymphadenopathy. No thyromegaly. LUNGS: Diminished breath sounds bilaterally otherwise clear to auscultation. No wheezes or rhonchi. No intercostal retractions. HEART: S1, S2 are muffled ABDOMEN: Soft. Obese. Bowel sounds are present. No masses. No tenderness. EXTREMITIES: No pedal edema. No calf tenderness. NEUROLOGICAL: Patient is awake, alert and oriented x3. Cranial nerves 2 through 12 are grossly intact. Assessment: Acute alcohol intoxication with level 340 on admission. Patient does drink about a pint daily. Severe alcohol abuse Alcoholic hepatitis with elevated liver enzymes. AST 236 and ALT 181 on admission Prior history of seizure disorder Hyperlipidemia Asthma Anxiety Obesity with BMI 33.5 History of vaping and methamphetamine use GI and DVT prophylaxis with heparin subcu and Pepcid Full code Plan: Patient continued on [facility] protocol and will continue. Wean as tolerated and will add Librium taper once less nauseated Continue with antinausea medications and supportive care Liver functions noted to be elevated most likely hepatic steatosis, liver ultrasound ordered, will consult GI and appreciate input and recommendations Continue with IV hydration and will follow-up on repeat labs Encouraged to increase activity as tolerated Mother at the bedside with questions and concerns that were answered. Patient plans on returning to [facility] rehab once cleared for discharge. Overall prognosis is guarded at this time. Possible discharge planning in the next 24 hours The impression and plan of care has been dictated by Jamee Villanueva, nurse practitioner as directed. Dr. Jeni MD I have performed a history and examination and MDM of this patient, discussed the same with the dictator, and agree with the dictator's assessment and plan as written ,documented as a scribe. Based on total visit time, I have performed more than 50% of the visit. Any additional findings or plans will be noted. Objective - Vital Signs Vital signs: Vital Signs Temp 98 F 05/17/24 07:00 Pulse 105 H 05/17/24 07:00 Resp 19 05/17/24 07:00 BP 121/74 05/17/24 07:00 Pulse Ox 94 L 05/17/24 07:00 FiO2 Intake & Output 05/16/24 05/17/24 05/17/24 18:59 06:59 18:59 Weight 108.862 kg 108.862 kg Other: # Voids 3 - Labs CBC & Chem 7: 05/17/24 05:14 05/17/24 05:14 Labs: Abnormal Lab Results - Last 24 Hours (Table) 05/16/24 05/16/24 05/17/24 Range/Units 10:39 10:39 05:14 Hgb 17.8 H (13.0-17.5) gm/dL MCH 32.1 H (27.0-32.0) pg Lymphocytes # 0.89 L (0.90-5.00) X 10*3/uL Chloride 109 H (98-107) mmol/L Anion Gap (4.00-12.00) mmol/L Glucose 107 H (74-99) mg/dL Calcium (8.7-10.3) mg/dL Total Bilirubin 2.4 H (0.2-1.3) mg/dL AST 236 H (17-59) U/L ALT 181 H (4-49) U/L Total Protein (6.2-8.2) g/dL Serum Alcohol 340 H* mg/dL 05/17/24 Range/Units 05:14 Hgb (13.0-17.5) gm/dL MCH (27.0-32.0) pg Lymphocytes # (0.90-5.00) X 10*3/uL Chloride (98-107) mmol/L Anion Gap 16.20 H (4.00-12.00) mmol/L Glucose (74-99) mg/dL Calcium 8.2 L (8.7-10.3) mg/dL Total Bilirubin 3.8 H (0.2-1.3) mg/dL AST 884 H (17-59) U/L ALT 569 H (4-49) U/L Total Protein 5.9 L (6.2-8.2) g/dL Serum Alcohol mg/dL
[2024-05-18 08:56] LABS: Magnesium 1.4 mg/dL (1.5-2.4)
[2024-05-18 09:06] LABS: ALT 452 U/L (10-49); AST 526 U/L (14-35); Albumin 3.6 g/dL (3.8-4.9); Albumin/Globulin Ratio 1.89 Ratio (1.60-3.17); Alkaline Phosphatase 82 U/L (41-126); Blood Urea Nitrogen 7.9 mg/dL (9.0-27.0); Calcium 7.8 mg/dL (8.7-10.3); Chloride 96 mmol/L (96-109); Globulin 1.9 g/dL (1.6-3.3); Glucose 113 mg/dL (70-110); Potassium 3.3 mmol/L (3.5-5.5); Sodium 130 mmol/L (135-145); Total Bilirubin 2.6 mg/dL (0.3-1.2); Total Protein 5.5 g/dL (6.2-8.2)
[2024-05-18] MEDS ORDERED: Magnesium Replacement Protocol 1 EACH MISC MISCELLANE PRN (09:18)
[2024-05-18] MEDS ORDERED: Potassium Replacement Protocol 1 EACH MISC MISCELLANE PRN (09:18)
[2024-05-18] MEDS: FAMOTIDINE 20 MG TAB PO SCH (09:45)
[2024-05-18] MEDS: POTASSIUM CHLORIDE ER 20 MEQ TAB.ER PO SCH (11:10)
[2024-05-18] MEDS: MAGNESIUM SULFATE-D5W PMX 1 GM in DEXTROSE/WATER 1 100ML.BAG IVPB SCH (11:10)
[2024-05-18 12:23] LABS: INR 1.17 sec (0.93-1.11); Prothrombin Time 12.5 sec (9.9-11.9)
--- NOTE | 2024-05-18 12:42 | P.PN ---
Subjective Progress Note Date: 05/18/24 Principal diagnosis: Acute alcoholic hepatitis This is a pleasant 38-year-old male who was sent over from [facility] for alcohol intoxication. Patient had elevated alcohol level and needed to come to the hospital for clearance before being admitted to [facility] for alcohol abuse. Patient was noted to have elevated LFTs on admission with increased today. [facility] was consulted for elevated liver enzymes. Patient states he has been an alcoholic for many years he states most of his life. He states that he drinks a half a pint to 1 pint daily. He denies any previous known history of liver disease. 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 He denies any abdominal pain, nausea or vomiting. Serum alcohol level on admission was 340. Today's labs WBC 7.6 hemoglobin 16.6 platelet count 181,000 sodium 136 potassium 4.1 BUN 11 creatinine 0.9 total bilirubin 3.8 AST 884 ALT 569 alkaline phosphatase 62 05/18/2024 Patient seen and examined today as a follow-up. He he states he has some mild abdominal discomfort mostly in the right upper quadrant. No nausea or vomiting. INR 1.1 sodium 130 potassium 3.3 BUN 7.9 creatinine 1.0 magnesium 1.4 total bilirubin 2.6 AST 526 ALT 452 alkaline phosphatase 82 hepatitis panel nonreactive. Liver ultrasound reports some minimal sludge within gallbladder. Gallstones are identified. No gallbladder wall thickening is evident. Hepatomegaly. Mild fatty infiltration liver is present. Objective - Vital Signs Vital signs: Vital Signs Temp 98.1 F 05/18/24 07:18 Pulse 96 05/18/24 07:18 Resp 18 05/18/24 07:18 BP 107/71 05/18/24 07:18 Pulse Ox 91 L 05/18/24 07:18 FiO2 Intake & Output 05/17/24 05/18/24 05/18/24 18:59 06:59 18:59 Intake Total 540 Balance 540 Weight 108.862 kg Intake: Oral 540 Other: # Voids 3 3 - Exam General appearance: The patient is alert, oriented, appears in no acute distres s. HET: Head is normocephalic and atraumatic. Conjunctiva pink. Sclera anicteric. Neck: Supple without lymphadenopathy. Abdomen: Soft, mild right upper quadrant tenderness over liver, hepatomegaly. Nondistended. Extremities: Normal skin color and turgor. No pedal edema Skin: No rashes, no jaundice Neurological: No focal deficits. Alert and oriented. - Labs CBC & Chem 7: 05/17/24 05:14 05/18/24 04:23 Labs: Abnormal Lab Results - Last 24 Hours (Table) 05/18/24 05/18/24 Range/Units 04:23 04:23 PT 12.5 H (9.9-11.9) sec INR 1.17 H (0.93-1.11) sec Sodium 130 L (135-145) mmol/L Potassium 3.3 L (3.5-5.5) mmol/L Carbon Dioxide 21.0 L (21.6-31.8) mmol/L Anion Gap 13.00 H (4.00-12.00) mmol/L BUN 7.9 L (9.0-27.0) mg/dL BUN/Creatinine Ratio 7.90 L (12.00-20.00) Ratio Glucose 113 H (70-110) mg/dL Calcium 7.8 L (8.7-10.3) mg/dL Magnesium 1.4 L (1.5-2.4) mg/dL Total Bilirubin 2.6 H (0.3-1.2) mg/dL AST 526 H (14-35) U/L ALT 452 H (10-49) U/L Total Protein 5.5 L (6.2-8.2) g/dL Albumin 3.6 L (3.8-4.9) g/dL Assessment and Plan (1) Alcoholic hepatitis Narrative/Plan: 8-year-old male presenting to the hospital with alcohol intoxication with a blood alcohol level of 340 with a longstanding history of alcohol abuse over many years. Patient noted to have elevated LFTs on admission with increased elevation today. No prior history of known liver disease denies any history of IV drug use. Elevated LFTs likely secondary to acute alcohol hepatitis. Hepatitis panel ordered and currently pending. Discussed with patient importance of alcohol abstinence, need for alcohol abstinence as patient likely has underlying liver disease possible cirrhosis from alcohol abuse. Ultrasound liver ordered and reviewed showing hepatomegaly and course echotexture which can be seen with underlying liver disease. LFTs are trending down. Continue to monitor LFTs. Continue with rehab with [facility] on discharge. Current Visit: No Status: Acute Code(s): K70.10 - ALCOHOLIC HEPATITIS WITHOUT ASCITES SNOMED Code(s): 428599679 (2) Alcohol intoxication Current Visit: Yes Status: Acute Code(s): F10.929 - ALCOHOL USE, UNSPECIFIED WITH INTOXICATION, UNSPECIFIED SNOMED Code(s): 55747530 (3) Transaminitis Current Visit: Yes Status: Acute Code(s): R74.01 - ELEVATION OF LEVELS OF LIVER TRANSAMINASE LEVELS SNOMED Code(s): 535127132 Plan: 1. Continue symptomatic and supportive care 2. Daily CMP 3. Liver ultrasound ordered and reviewed 4. Diet as tolerated 5. Replace electrolytes 6. Recommend alcohol abstinence. Discussed with patient and his mother at the bedside importance of alcohol abstinence and progression of liver disease and possible cirrhosis of the liver. Patient verbalized understanding. Thank you for this consultation, patient is cleared from vascular surgery for d ischarge once electrolytes are replaced. Dr. Ezequiel Brandt I agree with the dictator's note, documented as a scribe by Sarah Tesfaye.
[2024-05-18 13:59] VITALS: BP 132/80; PULSE 84; RESP 16; TEMP 98.2
--- NOTE | 2024-05-21 11:32 | P.DS ---
Providers Date of admission: 05/18/24 11:06 Expected date of discharge: 05/18/24 Attending physician: Victoria Ngo Consults: 05/17/24 09:39 Consult Physician Urgent Consulting Provider: Cris Brandt Consult Reason/Comments: etoh, elev bili, lft Do you want consulting provider notified?: Yes Primary care physician: Mark Anthony Jason Hospital Course: Final diagnosis Acute alcohol intoxication with level 340 on admission. Patient does drink about a pint daily. Severe alcohol abuse Alcoholic hepatitis with elevated liver enzymes. AST 236 and ALT 181 on admission Prior history of seizure disorder Hyperlipidemia Asthma Anxiety Obesity with BMI 33.5 History of vaping and methamphetamine use GI and DVT prophylaxis Full code Discharge disposition Patient is being discharged in a stable condition with guarded prognosis to home to a alf house until intake appointment on 05/22/2024 at [facility]. Patient will follow-up with Dr. Mark Anthony Jason in the outpatient setting upon discharge. Patient is to continue with Librium taper and outpatient follow-up with [facility] as scheduled. Total time taken is greater than 35 minutes. Hospital course This is a 38-year-old male who was recently admitted for acute alcohol intoxication acute early withdrawal and severe alcohol abuse. Patient was at [facility] although sent to the hospital for further evaluation as patient appeared to be intoxicated. Patient maintained on CIWA protocol and also started on Librium noted to have significantly elevated liver enzymes. Most likely secondary to alcohol use showing a downward trend and patient was evaluated by GI recommending complete alcohol cessation. Patient able to have an intake appointment at [facility] on 05/22/2024 and will be going to a alf house on discharge until the intake appointment. Patient to follow-up with GI outpatient. Patient is medically stable and cleared for discharge. Currently no reports of chest pain, shortness of breath, or palpitations. Patient is afebrile. No reports of nausea or vomiting and patient is tolerating diet. Patient will be discharged home today. Guarded prognosis and high risk for readmissions given continued alcohol abuse Physical exam: Gen: This is a 38-year-old male who is awake, alert and oriented x 3, well- developed, well-nourished, obese HEENT: Head is atraumatic, normocephalic. Pupils equal, round. Sclerae is anicteric. NECK: Supple. No JVD. No lymphadenopathy. No thyromegaly. LUNGS: Clear to auscultation. No wheezes or rhonchi. No intercostal retractions. HEART: Regular rate and rhythm. No murmur. ABDOMEN: Soft. Obese. Bowel sounds are present. No masses. No tenderness. EXTREMITIES: No pedal edema. No calf tenderness. NEUROLOGICAL: Patient is awake, alert and oriented x3. Cranial nerves 2 through 12 are grossly intact. Please refer to medication reconciliation sheet for a list of medications. The impression and plan of care has been dictated by Jamee Villanueva, Nurse Practitioner as directed. Dr. Jeni MD I have performed a history and examination and MDM of this patient, discussed the same with the dictator, and agree with the dictator's assessment and plan as written ,documented as a scribe. Based on total visit time, I have performed more than 50% of the visit. Patient Condition at Discharge: Stable Plan - Discharge Summary Discharge Rx Participant: No New Discharge Prescriptions: New Famotidine [Pepcid] 20 mg PO BID 15 Days #30 tab Nicotine 21Mg/24Hr Patch [Habitrol] 1 patch TRANSDERM DAILY #30 patch chlordiazePOXIDE HCl [Librium] 20 mg PO TID #11 cap Thiamine [Vitamin B-1] 100 mg PO DAILY #30 tab Continue Atorvastatin [Lipitor] 10 mg PO DAILY busPIRone HCL 22.5 mg PO BID QUEtiapine [SEROquel] 25 mg PO HS Ondansetron Odt [Zofran ODT] 4 mg PO Q12HR PRN #20 tab PRN Reason: Nausea And Vomiting Discharge Medication List Atorvastatin [Lipitor] 10 mg PO DAILY 03/08/22 [History] QUEtiapine [SEROquel] 25 mg PO HS 02/18/24 [History] busPIRone HCL 22.5 mg PO BID 02/18/24 [History] Famotidine [Pepcid] 20 mg PO BID 15 Days #30 tab 05/18/24 [Rx] Nicotine 21Mg/24Hr Patch [Habitrol] 1 patch TRANSDERM DAILY #30 patch 05/18/24 [Rx] Ondansetron Odt [Zofran ODT] 4 mg PO Q12HR PRN #20 tab 05/18/24 [Rx] Thiamine [Vitamin B-1] 100 mg PO DAILY #30 tab 05/18/24 [Rx] chlordiazePOXIDE HCl [Librium] 20 mg PO TID #11 cap 05/18/24 [Rx] Follow up Appointment(s)/Referral(s): Mark Anthony Jason MD [Primary Care Provider] - 1-2 days (Office closed at time of call. Please make follow up appointment. ) Cris Brandt MD [STAFF PHYSICIAN] - As Needed Ambulatory/Diagnostic Orders: Comprehensive Metabolic Panel [LAB.AMB] Time Frame: 3 Days, Location: None Selected Patient Instructions/Handouts: Chlordiazepoxide (By mouth), Famotidine (By mouth), Thiamine (By mouth), Nicotine (Absorbed through the skin), Ondansetron (By mouth), Alcohol Intoxication (DC) Activity/Diet/Wound Care/Special Instructions: Activity limited until follow-up Follow-up with primary care provider on discharge Follow-up outpatient at your intake appointment with [facility] for inpatient alcohol rehab Continue taking medications as prescribed Avoid all alcohol intake and exposure to Discharge Disposition: HOME SELF-CARE
== END 2024-05-18 15:58 | disposition home or self-care (01) | DRG 897 ==
LOC: EC 09:57 → 6NMEDSUR 13:21 → 5NMEDONC 16:25 → OBSVTOIN 05-18 11:06
PROVIDERS: ADMIT Internal Medicine; ATTEND Internal Medicine
DX: F10.229 Alcohol dependence with intoxication, unspecified (principal); Y90.8 Blood alcohol level of 240 mg/100 ml or more; K70.0 Alcoholic fatty liver; Z28.310 Unvaccinated for COVID-19; E78.5 Hyperlipidemia, unspecified; G40.909 Epilepsy, unspecified, not intractable, without status epilepticus; J45.909 Unspecified asthma, uncomplicated; F41.9 Anxiety disorder, unspecified; Z71.41 Alcohol abuse counseling and surveillance of alcoholic; R74.01 Elevation of levels of liver transaminase levels; E66.9 Obesity, unspecified; Z68.33 Body mass index [BMI] 33.0-33.9, adult; Z79.899 Other long term (current) drug therapy; K80.20 Calculus of gallbladder without cholecystitis without obstruction; K70.10 Alcoholic hepatitis without ascites
CPT/HCPCS: 36415; 76705; 80053; 80074; 80320; 83735; 85025; 85610; 93005; 96361; 96372; 96374; 96375; 99285